=== PATIENT | female | born 1980 | race Caucasian/White ===

== ENCOUNTER → 2021-12-31 | Outpatient (CLI) | payer BC ==
[2021-12-31 15:25] LABS: C Reactive Protein <0.30 mg/dL (0.00-0.80); Estradiol 25.4 pg/mL; Testosterone 5.63 ng/mL (9.01-47.94)
== END | disposition home or self-care (01) ==
LOC: LABWHC1 10:44
PROVIDERS: ATTEND Family Medicine
DX: G62.9 Polyneuropathy, unspecified (principal); E89.41 Symptomatic postprocedural ovarian failure
CPT/HCPCS: 36415; 82607; 82626; 82670; 83090; 84403; 86038; 86140

== ENCOUNTER → 2022-01-20 | Outpatient (CLI) | payer BC ==
--- NOTE | 2022-01-20 17:16 | MR ---
EXAMINATION TYPE: MR lumbar spine wo con DATE OF EXAM: 01/20/2022 COMPARISON: MRI lumbar spine 01/19/2015. HISTORY: Radiculopathy, lumbosacral region TECHNIQUE: Multiplanar, multisequence images of the lumbar spine were acquired without IV contrast. FINDINGS: Lumbar segments are intact. No paraspinal masses are identified. Conus medullaris has a normal appe arance. Disc desiccation is present at L5-S1. L1-L2: No herniation, protrusion or disc bulging. No canal stenosis is present. Foramina are paten t bilaterally. L2-L3: No herniation, protrusion or disc bulging. No canal stenosis is present. Foramina are paten t bilaterally. L3-L4: No herniation, protrusion or disc bulging. No canal stenosis is present. Foramina are paten t bilaterally. L4-L5: No herniation, protrusion or disc bulging. No canal stenosis is present. Foramina are patent bilaterally. L5-S1: Broad-based disc bulge without central canal stenosis. Previously seen central disc protrusion is no longer visualized. There is ligamentum flavum buckling and facet hypertrophy. Mild bilateral n eural foraminal stenosis. IMPRESSION: Degenerative disc disease at L5-S1 with broad-based disc bulge without central canal stenosis. Mild b ilateral neural foraminal stenosis. Previously seen disc herniation is no longer visualized.
== END | disposition home or self-care (01) ==
LOC: RADMRIMAIN 15:16
PROVIDERS: ATTEND Nurse Practitioner Adult Health
DX: M51.17 Intervertebral disc disorders with radiculopathy, lumbosacral region (principal); M48.061 Spinal stenosis, lumbar region without neurogenic claudication
CPT/HCPCS: 72148

== ENCOUNTER → 2022-02-11 | Outpatient (CLI) | payer BC ==
--- NOTE | 2022-02-11 17:16 | MR ---
EXAMINATION TYPE: MR sacrum/coccyx wo con DATE OF EXAM: 02/11/2022 COMPARISON: None. HISTORY: Lower back pain, RLE radiculopathy x 5 years. Standard multiplanar, multisequence MRI departmental protocol Multiplanar, multisequence images of the pelvis were acquired without contrast. Imaging focusing on b ilateral sacroiliac joints. FINDINGS: Sacroiliac joints appear symmetric and felt within normal limits. No asymmetric narrowing o r spurring is seen. Bone marrow signal intensity is maintained. No suspicious adjacent increased T2 s ignal or edema is noted. Visualized portion of sacrum is within normal limits. Sacral alar are mainta ined. No displaced acute sacral or coccygeal fracture. There is disc desiccation with mild to moderate disc space narrowing L5-S1 level. Tiny posterior disc herniation minimally effaces the anterior thecal sac. There are diverticula in the sigmoid colon of the left pelvis. Uterus is suspected surgically absent. No concerning pelvic fluid collection is seen. IMPRESSION: No suspicious findings seen to account for patient's right-sided radiculopathy type sympt oms.
== END | disposition home or self-care (01) ==
LOC: RADMRIMAIN 14:58
PROVIDERS: ATTEND Family Medicine
DX: M54.17 Radiculopathy, lumbosacral region (principal)
CPT/HCPCS: 72195

== ENCOUNTER → 2022-03-09 | Outpatient (CLI) | payer BC ==
[2022-03-09 10:33] VITALS: BP 117/73; PULSE 71; RESP 18; TEMP 98
--- NOTE | 2022-03-09 15:34 | P.PAINPG ---
PQRS Measure Charge Sheet Comment: HISTORY OF PRESENT ILLNESS: 41 yr old female as a referral from [facility] presents today w severe and chronic LBP x 5 yrs secondary to disc bulges and facet arthropathy without myelopathy for evaluation. Pt states pain level is at 8 /10 in intensity, constant, localized in the center lower lumbar spine, sharp/ stabbing in character w shooting pain towards the BLEs, R>L. Pain is provoked by standing/laying flat on her back for periods of 45 min or more . Pain is alleviated by heat, medications (Neurontin, Tyl, Motrin), topicals, laying on her side, repositioning and rest. States she can not go to a chiropractor due to TMJ. PT could not commence PT treatments as her insurance would not cover the costs, which out of pocket would cost her $1,000 per month which is unaffordable for the patient. PMH: OA, MDD, (Rybelsus for weight loss, pt is not diabetic) PSH: Hysterectomy (2010), Laprascopy (1991, 1993) SH: Negative x 3 FH: Non contributory All: NKDA Meds: See list REVIEW OF ORGAN SYSTEMS: CONSTITUTIONAL: No fevers or chills. No recent weight loss. NEUROLOGICAL: + numbness and tingling along the distal extremities. No seizure disorders or headaches. MUSCULOSKELETAL: + pain PSYCHIATRIC: Denies current depression or suicidal thoughts. Physical Examinations : Constitutional : Cooperative , not in acute distress . Neurologic : Cranial nerve II to XII intact. No focal neurological deficits. Psychiatric : alert & oriented x 3. Matching mood & appropriate affect. Judgment & insight intact. Musculoskeletal : Cervical Spine Motor strength in the deltoid and biceps: Normal right side. Normal Left side Motor strength biceps and the wrist extensors: Normal right side . Normal left side Motor strength in the triceps muscle: Normal right side. Normal left side Deep tendon reflexes: Normal at the biceps. Normal at Brachioradialis. Normal at triceps Vertebral body tenderness to deep palpation over Cervical facet loading test: positive bilaterally Spurling test: positive bilaterally Neck distraction test: positive bilaterally Mary sign: positive bilaterally Lumbar spine Motor strength lower extremities ,thigh and legs 5/5 Right side , 5/5 Left side Deep tendon reflexes : Normal Knee Jerk. Normal Ankle Jerk Vertebral body tenderness over L5 Lumbar facet Loading Test: positive Right / positive Left Range of motion of the lumbar spine Flexion 30 degrees, extension 10 degrees Straight Leg Raise test: Left/ Right positive at degree Kanika test: positive right / positive left. Severe tenderness over the Sacroiliac joint on the Right / Left sides Gaenslen test: positive bilaterally Seated flexion test: positive bilaterally. Sacral spine : Severe tenderness over the Sacroiliac joint: right side / left side Range of motion: Flexion of the lumbar spine <60 degrees Range of motion: Extension of the lumbar spine <20 degrees Gaenslen's Test positive Mehran's Test positive Kanika test: positive right side / left side Thigh Thrust Test Sacral Thrust Test Imaging: MRI without contrast of the lumbar spine from 01/20/22 reviewed Assessment/ Plan : Lumbar disc bulge, Lumbar facet arthropathy Recommendation of DIPAK L5-S1. May need a series of injections, up to 3 within a 6 mo period, for optimal pain relief. Risks, benefits of procedure discussed and patient verbalized understanding. Admits to aspirin or anti- coagulant use or medications for diabetes. Protocol for discontinuation/ continuation of medications yessi procedure discussed. All questions answered. I have spent greater than 30 minutes on patient care today. Dr Barrios was available by phone for the evaluation of this patient. The time was used to review the medical records including relevant urine studies and Prescription history (MAPs), review of the available imaging, evaluation and examination of the patient, coordination of care with the medical staff and if applicable referring physicians, as well as creation of the medical record - Pain Location Lower Back Non-Pharmacological Interventions: Heat, Inactivity Pharmacological Interventions: PRN Medication, Scheduled Medication, Topical Medication Controlled Substance Measures - Controlled Substance Measures Is patient prescribed a controlled substance at discharge?: No
== END ==
LOC: PNWHC3 09:42
PROVIDERS: ATTEND Specialist
DX: M51.16 Intervertebral disc disorders with radiculopathy, lumbar region (principal); Z79.01 Long term (current) use of anticoagulants; E11.9 Type 2 diabetes mellitus without complications; Z79.4 Long term (current) use of insulin
CPT/HCPCS: 99211

== ENCOUNTER 2022-04-09 11:06 | Day surgery (SDC) | payer BC ==
[2022-04-07 14:57] VITALS: BMI 25.8
[2022-04-09 11:36] VITALS: RESP 16; TEMP 97.6
[2022-04-09] MEDS ORDERED: LACTATED RINGERS 1,000 ML IV ONE ×2 (11:36→12:15)
[2022-04-09] MEDS ORDERED: TRIAMCINOLONE ACETONIDE 40 MG/ML 1 ML VIAL ONE (12:04)
[2022-04-09] MEDS ORDERED: IOPAMIDOL M200 10 ML VIAL ONE (12:04)
[2022-04-09] MEDS ORDERED: fentaNYL (PF) 50 MCG/ML 2 ML AMP ONE (12:04)
[2022-04-09] MEDS ORDERED: MIDAZOLAM 2 MG/2 ML VIAL ONE (12:04)
--- NOTE | 2022-04-09 12:14 | P.PCN ---
Date of Procedure: 04/09/22 Description of Procedure: PREOPERATIVE DIAGNOSIS: 1-lumbar radiculopathy 2-Lumbar spondylosis with Facet arthropathy without myelopathy POSTOPERATIVE DIAGNOSIS: Lumbar radiculopathy 2-Lumbar spondylosis with Facet arthropathy without myelopathy PROCEDURE 1. Lumbar epidural steroid injection under fluoroscopic guidance at the L5-S1 level. 2. Lumbar epidurogram. ANESTHESIA: Local with 1% lidocaine 3 ml and IV sedation with Versed 2 mg ,and fentanyl 100 g EBL: Minimal PROCEDURE INDICATION: The patient with low back pain and radiculitis symptoms unresponsive to conservative treatment. Fluoroscopy was used to optimize visualization of the needle placement and to maximize safety. PROCEDURE DESCRIPTION / TECHNIQUE: The patient was seen and identified in the preoperative area. Risks, benefits, complications including but not limited to infections ,bleeding ,allergic reaction to the medications ,nerve damage and not complete pain releife , and alternatives were discussed with the patient. The patient agreed to proceed with the procedure and signed the consent. IV was started, and vital signs were stable. Patient was taken to the OR and time out was completed. The patient was placed in the prone position on procedure table and a pillow was placed under the abdomen to reduce lumbar lordosis. The lumbosacral area was prepped and draped in the usual sterile fashion.ere closely monitored during the procedure. Conscious sedation was used during the procedure to decrease patients anxiety. Vital signs was monitered during the entire procedure. Using anterior-posterior fluoroscopy, the L5-S1 interlaminar space was identified and the skin over this site was marked and then infiltrated with 1% lidocaine subcutaneously. Subsequently, a 20-gauge Tuohy epidural needle was inserted and advanced toward the epidural space using the ``Loss of resistance technique and guided by AP and lateral fluoroscopy. The correct needle position in the epidural space was verified with the injection of 2 mL of the water soluble contrast dye Omnipaque 180 contrast and observing an excellent epidurogram with the epidural spread of the dye, after negative aspiration for blood and CSF and in the absence of paresthesias. Again after negative aspiration, a 6 ml mixture containing 40 mg Kenalog and 4 ml of preservative free Normal Saline was injected and a washout of epidurogram was seen. Needle was withdrawn intact, skin was cleansed, and bandages were applied. COMPLICATIONS: None DISPOSITION / PLANS: The patient was placed in a supine position and transferred to the recovery area in a stable condition for observation. There was no evidence of lower extremity motor or sensory deficit after the procedure. Patient was discharged from the recovery room after meeting discharge criteria. Home discharge instructions were given to the patient by the staff. The patient was reexamined prior to discharge. The patient will schedule a follow up in the clinic in 2-4 weeks.
[2022-04-09] MEDS ORDERED: LACTATED RINGERS 1,000 ML IV SCH (12:15)
--- NOTE | 2022-04-09 12:24 | FL ---
Fluoroscopy INDICATION: Pain FINDINGS: Fluoroscopy time: 3 seconds. Images obtained: 1. IMPRESSIONS: 1. Documentation of fluoroscopy.
[2022-04-09 12:30] VITALS: BP 106/69; PULSE 51
== END 2022-04-09 12:45 | disposition home or self-care (01) ==
LOC: ORPAIN 11:06
PROVIDERS: ATTEND Anesthesiology
DX: M47.26 Other spondylosis with radiculopathy, lumbar region (principal)
CPT/HCPCS: 62323; J2250; J3301; J3010; Q9966

== ENCOUNTER → 2022-04-23 | Outpatient (CLI) | payer BC ==
[2022-04-23 09:02] VITALS: BP 107/73; PULSE 67; RESP 18; TEMP 98.1
--- NOTE | 2022-04-23 14:42 | P.PAINPG ---
PQRS Measure Charge Sheet Comment: A 42 yr old female with a history of severe and chronic low back pain secondary to lumbar DDD and spondylosis with facet arthropathy without myelopathy presents today for evalaution s/p DIPAK L5-S1 Pt states she experienced 0 % pain relief s/p procedure. Pain level is provoked at 8 /10 in intensity, constant, localized in the lumbar spine, throbbing/ sharp in character w shooting towards the BL hips, L>R. Pain is provoked by bending, lifting. Pain is alleviated with heat, home exercise daily, meds (Neurontin, Motrin OTC), topicals, sitting and rest. Interventional pain procedures completed include DIPAK L5-S1 Patient is currently on Neurontin, Motrin OTC Patient denies any side effects of the medication(s), denies excessive drowsiness or sleepiness, denies suicidal ideation and reports that the current pain medication is helping to control the pain and improve activities of daily living. Patient denies any motor or sensory deficits. Patient denies any fever or night sweats, denies any change in the bowel movements or urination. Physical Examination: -Constitutional: Cooperative. Not in acute distress . - Neurologic: Cranial nerve II to XII intact. No focal neurological deficits. - Psychatric: Alert & oriented x 3. Matching mood & appropriate affect. Judgment and insight intact. - Musculoskeletal: Cervical spine: Muscle bulk/ tone/ strength in the bilateral upper extremities normal Vertebral body tenderness to palpation over Spurling test positive Distraction test positive Facet loading test positive Thoracic spine Muscle bulk / tone/ strength in the bilateral paraspinal muscles normal Vertebral body tender to palpation over Facet loading test positive Lumbar spine: Motor bulk/ tone/ strength lower extremities , thigh and legs : 5/5 Deep tendon reflexes : Normal Knee Jerk. Normal Ankle Jerk . Vertebral body tenderness to palpation over Lumbar Facet Loading Test positive TTP over BL L4-L5, L5-S1 facets, L>R Straight Leg Raise: positive at 30 degrees right side/ left side Gaenslen's Test positive Sacral spine : Severe tenderness over the Sacroiliac joint: right side / left side Range of motion: Flexion of the lumbar spine <60 degrees Range of motion: Extension of the lumbar spine <20 degrees Gaenslen's Test positive Kanika test: positive right side / left side Thigh Thrust Test Sacral Thrust Test Assessment and plan: Chronic LBP secondary to lumbar DDD, spondylosis with facet arthropathy without myelopathy Recommendation of BL facet block of the medial branches L4-L5, L5-S1 #1. May need a series of injections, up until RFA, for optimal pain relief. Risks, benefits of procedure discussed and pt verbalized understanding. Admits to anticoagulant use or medical history of diabetes. Protocol for discontinuation/ continuation of medications yessi procedure discussed. All patient questions answered I have spent less than 30 minutes on patient care today. Dr Barrios was available by phone for the evaluation of this patient. The time was used to review the medical records including relevant urine studies and Prescription history (MAPs), review of the available imaging, evaluation and examination of the patient, coordination of care with the medical staff and if applicable referring physicians, as well as creation of the medical record - Pain Location Lower Back Non-Pharmacological Interventions: Heat, Home Exercise, Ice, Inactivity, Position/Reposition, Sitting, Stretching Pharmacological Interventions: Epidural, PRN Medication, Scheduled Medication, Topical Medication PQRS Narrative: Hx Alcohol Use (MH) No Home Medications: Ambulatory Orders FLUoxetine HCL 40 mg PO DAILY 04/07/22 Gabapentin [Neurontin] 100 mg PO BID 04/07/22 Semaglutide [Rybelsus] 6 mg PO DAILY 04/07/22 estradioL [Estrace] 1 mg PO DAILY 04/07/22 Ibuprofen [Motrin Ib] 200 mg PO Q8H 04/23/22 Controlled Substance Measures - Controlled Substance Measures Is patient prescribed a controlled substance at discharge?: No
== END ==
LOC: PNWHC3 08:38
PROVIDERS: ATTEND Specialist
DX: M47.816 Spondylosis without myelopathy or radiculopathy, lumbar region (principal); M51.36 Other intervertebral disc degeneration, lumbar region; Z79.84 Long term (current) use of oral hypoglycemic drugs
CPT/HCPCS: 99211

== ENCOUNTER → 2022-06-25 | Outpatient (CLI) | payer BC ==
[2022-06-25 10:40] VITALS: BP 112/60; PULSE 66; RESP 18; TEMP 97.9
--- NOTE | 2022-06-25 15:51 | P.PAINPG ---
Objective - Vital Signs Vital signs: Intake & Output 06/24/22 06/25/22 06/25/22 18:59 06:59 18:59 Weight 75.296 kg PQRS Measure Charge Sheet Comment: A 42 yr old female with a history of severe and chronic LBP secondary to lumbar DDD and spondylosis with facet arthropathy without myelopathy presents today for evaluation s/p BL facet block of the medial branches L4-L5, L5-S1 #1. Pt states she experreinced 90 % pain relief x 8 hrs s/p procedure. Pain level is provoked at 6 /10 in intensity, constant, localized in the lumbar spine, achy in character w shooting up and down the spine. Pain is provoked by lifting, pushing, pulling, standing/ walking for periods of 15 min or more. Pain is alleviated with heat, ice, meds, topicals, repositioning and rest. Interventional pain procedures completed include BL MBB L3-L5 x1 Patient is currently on Ibu Patient denies any side effects of the medication(s), denies excessive drowsiness or sleepiness, denies suicidal ideation and reports that the current pain medication is helping to control the pain and improve activities of daily living. Patient denies any motor or sensory deficits. Patient denies any fever or night sweats, denies any change in the bowel movements or urination. Physical Examination: -Constitutional: Cooperative. Not in acute distress . - Neurologic: Cranial nerve II to XII intact. No focal neurological deficits. - Psychatric: Alert & oriented x 3. Matching mood & appropriate affect. J udgment and insight intact. - Musculoskeletal: Cervical spine: Muscle bulk/ tone/ strength in the bilateral upper extremities normal Vertebral body tenderness to palpation over Spurling test positive Distraction test positive Facet loading test positive TTP Thoracic spine Muscle bulk / tone/ strength in the bilateral paraspinal muscles normal Vertebral body tender to palpation over Facet loading test positive TTP Lumbar spine: Motor bulk/ tone/ strength lower extremities , thigh and legs : 5/5 Deep tendon reflexes : Normal Knee Jerk. Normal Ankle Jerk . Vertebral body tenderness to palpation over Lumbar Facet Loading Test positive TTP over BL L4-L5, L5-S1 facets Straight Leg Raise: positive at 30 degrees right side/ left side Gaenslen's Test positive Sacral spine : Severe tenderness over the Sacroiliac joint: right side / left side Range of motion: Flexion of the lumbar spine <60 degrees Range of motion: Extension of the lumbar spine <20 degrees Gaenslen's Test positive right side / left side Kanika test: positive right side / left side Thigh Thrust Test positive right side / left side Sacral Thrust Test positive right side / left side Assessment and plan: Chronic LBP secondary to lumbar DDD, spondylosis with facet arthropathy without myelopathy Recommendation of BL facet block of the medial branches L4-L5, L5-S1 #2. May need a series of injections, up until RFA, for optimal pain relief. Risks, benefits of procedure discussed and pt verbalized understanding. Admits to anticoagulant use or medical history of diabetes. Protocol for discontinuation/ continuation of medications yessi procedure discussed. All questions answered. I have spent less than 30 minutes on patient care today. Dr Barrios was available by phone for the evaluation of this patient. The time was used to re view the medical records including relevant urine studies and Prescription history (MAPs), review of the available imaging, evaluation and examination of the patient, coordination of care with the medical staff and if applicable referring physicians, as well as creation of the medical record PQRS Narrative: Hx Alcohol Use (MH) No Home Medications: Ambulatory Orders FLUoxetine HCL 40 mg PO DAILY 04/07/22 Semaglutide [Rybelsus] 6 mg PO DAILY 04/07/22 estradioL [Estrace] 1 mg PO DAILY 04/07/22 Ibuprofen [Motrin Ib] 200 mg PO Q8H PRN 04/23/22 Lidocaine 5% Patch [Lidoderm] 1 each TP QAM 30 Days #30 patch 05/14/22 buPROPion XL [Wellbutrin XL] 150 mg PO HS 06/02/22 Controlled Substance Measures - Controlled Substance Measures Is patient prescribed a controlled substance at discharge?: No
== END ==
LOC: PNWHC3 09:51
PROVIDERS: ATTEND Anesthesiology
DX: M47.816 Spondylosis without myelopathy or radiculopathy, lumbar region (principal); M51.36 Other intervertebral disc degeneration, lumbar region; G89.29 Other chronic pain
CPT/HCPCS: 99211

== ENCOUNTER 2022-07-31 08:39 | Day surgery (SDC) | payer BC ==
[2022-07-28 10:11] VITALS: BMI 24.2
[~2022-07-31 08:39] MED LIST: LACTATED RINGERS 1,000 ML IV SCH; LIDOCAINE 1% (10MG/ML) FOR IV START INTRADERMA PRN
[2022-07-31 08:56] VITALS: TEMP 97
[2022-07-31] MEDS ORDERED: methylPREDNISolone ACETATE 40 MG/ML 1 ML VIAL ONE (09:10)
[2022-07-31] MEDS ORDERED: ROPIVACAINE 5 MG/ML 20 ML AMPULE ONE (09:10)
[2022-07-31] MEDS ORDERED: fentaNYL (PF) 50 MCG/ML 2 ML AMP ONE (09:10)
[2022-07-31] MEDS ORDERED: MIDAZOLAM 2 MG/2 ML VIAL ONE (09:10)
--- NOTE | 2022-07-31 09:25 | P.PCN ---
Date of Procedure: 07/31/22 Procedure(s) Performed: PREOPERATIVE DIAGNOSIS : 1- Lumbar spondylosis with Facet Arthropathy without myelopathy . 2- Lumber degenerative disc disease POSTOPERATIVE DIAGNOSIS: 1- Lumbar spondylosis with Facet Arthropathy without myelopathy . 2- Lumber degenerative disc disease PROCEDURE: Diagnostic bilateral L3 , L4 , and L5 medial branch block under fluoroscopy guidance(fluoroscopy images available in the radiology Department ) ( To target the facet joint between I Bilateral L4-5 , and L5-S1 )# 2nd ANESTHESIA:, Monitored anesthesia care as per anesthesia department. EBL: Minimal COMPLICATION: None PROCEDURE INDICATION: Chronic low back pain secondary to Facet arthropathy unresponsive to conservative treatment. PROCEDURE DESCRIPTION: the patient was seen and identified in the preop holding area , risks and benefits and possible complications of the procedure and alternative were discussed with the patient, and the patient agreed to proceed with the procedure and signed the consent and vital signs monitored during the procedure and fluoroscopy was used to maximize the benefit and accuracy of the needle placement, and sedation was given to decrease patient anxiety, patient was taken to the procedure room and placed in prone position vital signs monitored in the back prepped with chlorhexidine X3 then under strict sterile technique using a right oblique fluoroscopy ,the junction of the transverse process and the superior articulating process of the right L3 , L4 , and L5 vertebra which corresponding to the fluoroscopy image of the eye of the Minh dog on the block side for the medial branches and subsequently , after local infiltration of skin and subcu tissuies with Ropivacaine 0.5 % , one mL at each level ,then 22-gauge Quincke-type needles , 3 needle was used , each one of them placed at the junction of the base of the transverse process and the superior articular process at the appropriate level, and the needle was advanced until the periosteum contacted, needle placement confirmed with AP oblique and lateral view and after appropriate needle placement confirmed, and after negative aspiration for heme and CSF and there was no paresthesia 1-1/2 mL of Ropivacaine 0.5% mixed with 20 mg Depo-Medrol , then half mL injected at each level after negative aspiration the needle subsequently removed and the same procedure repeated for the left side at left side at L3 , L4 and L5 levels. At the end of the procedure and the needles removed and a bandage applied after the skin was cleaned the cleaning solution patient taken to recovery room in stable condition and monitors in the recovery room for 20-30 minutes and discharged home in stable condition after discharge criteria met and patient will follow up with the pain clinic in 2-4 weeks
[2022-07-31] MEDS ORDERED: IV FLUID CONTINUATION 600 ML IV ONE (09:28)
[2022-07-31 09:49] VITALS: BP 109/74; PULSE 58; RESP 16
--- NOTE | 2022-07-31 12:54 | FL ---
Fluoroscopy INDICATION: Pain FINDINGS: Fluoroscopy time: 20 seconds. DAP: 0.87772 mGycm^2 Images obtained: 5. IMPRESSIONS: 1. Documentation of fluoroscopy.
== END 2022-07-31 10:12 | disposition home or self-care (01) ==
LOC: ORPAIN 08:39
PROVIDERS: ATTEND Specialist
DX: M51.36 Other intervertebral disc degeneration, lumbar region (principal); M47.816 Spondylosis without myelopathy or radiculopathy, lumbar region; G89.29 Other chronic pain; Z87.891 Personal history of nicotine dependence; Z79.899 Other long term (current) drug therapy
CPT/HCPCS: 64493; 64494; J2250; J1030; J3010; J2795

== ENCOUNTER → 2022-08-20 | Outpatient (CLI) | payer BC ==
[2022-08-20 10:59] VITALS: BP 111/73; PULSE 59; RESP 18; TEMP 97.9
--- NOTE | 2022-08-20 14:13 | P.PAINPG ---
PQRS Measure Charge Sheet Comment: A 42 yr old female with a history of severe and chronic LBP secondary to lumbar DDD and spondylosis with facet arthropathy without myelopathy presents today for evaluation s/p BL MBB L4-L5, L5-S1 #2. Pt states she experienced 100 % pain relief x 4 days s/p procedure. Pain level is provoked at 6 /10 in inten sity, constant, localized in the lumbar spine,sharp in character w shooting up and down the spine. Pain is provoked by lifting, pushing, pulling, standing/ walking for periods of 15 min or more. Pain is alleviated with heat, ice, meds, topicals, repositioning and rest. Interventional pain procedures completed include LESIs, BL MBB L3-L5 x2 Patient is currently on Ibu, Lidoderm Patient denies any side effects of the medication(s), denies excessive drowsiness or sleepiness, denies suicidal ideation and reports that the current pain medication is helping to control the pain and improve activities of daily living. Patient denies any motor or sensory deficits. Patient denies any fever or night sweats, denies any change in the bowel movements or urination. Physical Examination: -Constitutional: Cooperative. Not in acute distress . - Neurologic: Cranial nerve II to XII intact. No focal neurological deficits. - Psychatric: Alert & oriented x 3. Matching mood & appropriate affect. Judgment and insight intact. - Musculoskeletal: Cervical spine: Muscle bulk/ tone/ strength in the bilateral upper extremities normal Vertebral body tenderness to palpation over Spurling test positive Distraction test positive Facet loading test positive TTP Thoracic spine Muscle bulk / tone/ strength in the bilateral paraspinal muscles normal Vertebral body tender to palpation over Facet loading test positive TTP Lumbar spine: Motor bulk/ tone/ strength lower extremities , thigh and legs : 5/5 Deep tendon reflexes : Normal Knee Jerk. Normal Ankle Jerk . Vertebral body tenderness to palpation over Lumbar Facet Loading Test positive TTP over BL L4-L5, L5-S1 Straight Leg Raise: positive at 30 degrees right side/ left side Gaenslen's Test positive Sacral spine : Severe tenderness over the Sacroiliac joint: right side / left side Range of motion: Flexion of the lumbar spine <60 degrees Range of motion: Extension of the lumbar spine <20 degrees Gaenslen's Test positive right side / left side Kanika test: positive right side / left side Thigh Thrust Test positive right side / left side Sacral Thrust Test positive right side / left side Assessment and plan: Chronic LBP secondary to lumbar DDD, spondylosis with facet arthropathy without myelopathy Recommendation of BL RFA L4-L5, L5-S1. Pt exhibited substantial pain relief w prior MBB procedures. Risks, benefits of procedure discussed and pt verbalized understanding. Admits to anticoagulant use or medical history of diabetes. Protocol for discontinuation/ continuation of medications yessi procedure discussed. All questions answered. I have spent less than 30 minutes on patient care today. Dr Barrios was available by phone for the evaluation of this patient. The time was used to review the medical records including relevant urine studies and Prescription history (MAPs), review of the available imaging, evaluation and examination of the patient, coordination of care with the medical staff and if applicable referring physicians, as well as creation of the medical record PQRS Narrative: Hx Alcohol Use (MH) No Home Medications: Ambulatory Orders FLUoxetine HCL 40 mg PO DAILY 04/07/22 Semaglutide [Rybelsus] 6 mg PO DAILY 04/07/22 estradioL [Estrace] 1 mg PO DAILY 04/07/22 Ibuprofen [Motrin Ib] 200 mg PO Q8H PRN 04/23/22 Lidocaine 5% Patch [Lidoderm] 1 each TP QAM 30 Days #30 patch 05/14/22 buPROPion XL [Wellbutrin XL] 150 mg PO HS 06/02/22 Controlled Substance Measures - Controlled Substance Measures Is patient prescribed a controlled substance at discharge?: No
== END ==
LOC: PNWHC3 09:46
PROVIDERS: ATTEND Specialist
DX: M51.36 Other intervertebral disc degeneration, lumbar region (principal); M47.816 Spondylosis without myelopathy or radiculopathy, lumbar region
CPT/HCPCS: 99211

== ENCOUNTER 2022-09-25 08:48 | Day surgery (SDC) | payer BC ==
[2022-09-23 10:18] VITALS: BMI 24.3
[2022-09-25] MEDS ORDERED: LIDOCAINE 1% (10MG/ML) FOR IV START INTRADERMA PRN (08:57)
[2022-09-25] MEDS ORDERED: LACTATED RINGERS 1,000 ML IV SCH (08:57)
[2022-09-25] MEDS ORDERED: LACTATED RINGERS 1,000 ML IV ONE ×2 (09:08→10:40)
[2022-09-25 09:09] VITALS: TEMP 97.6
[2022-09-25 09:12] LABS: Glucose,Whole Blood 90 mg/dL (70-110)
[2022-09-25] MEDS ORDERED: MIDAZOLAM 2 MG/2 ML VIAL ONE (10:07)
[2022-09-25] MEDS ORDERED: ROPIVACAINE 5 MG/ML 20 ML AMPULE ONE (10:07)
[2022-09-25] MEDS ORDERED: fentaNYL (PF) 50 MCG/ML 2 ML AMP ONE (10:07)
[2022-09-25] MEDS ORDERED: methylPREDNISolone ACETATE 40 MG/ML 1 ML VIAL ONE (10:07)
--- NOTE | 2022-09-25 10:34 | P.PCN ---
Date of Procedure: 09/25/22 Procedure(s) Performed: PREOPERATIVE DIAGNOSIS: 1-Lumbar Spondylosis with Facet Arthropathy without myelopathy. 2- Lumber degenerative disc disease. POSTOPERATIVE DIAGNOSIS: 1- Lumbar Spondylosis with Facet Arthropathy without myelopathy. 2- Lumber degenerative disc disease. PROCEDURES : Bilateral Radiofrequency thermocoagulation, L3 , L4 , and L5 medial branch, with fluoroscopic guidance (fluoroscopy images available in the radiology department) ( to denervate the facet joint at bilateral L4-5 ,and L5-S1 levels ). ANESTHESIA: Monitored anesthesia care as per anesthesia department . EBL: Minimal PROCEDURE INDICATION: The patient with low back pain secondary to lumbar facet arthropathy who had more than 50% relief of her pain with previous diagnostic lumbar medial branch block with bupivacaine. PROCEDURE DESCRIPTION / TECHNIQUE: The patient was seen and identified in the preoperative area. Risks, benefits, complications, including but not limited to risk of infection ,bleeding , allergic reactions to the medications and no complete pain releife , and alternatives were discussed with the patient, the patient agreed to proceed with the procedure and signed the consent. IV was started. Vital signs remained stable throughout the procedure. Patient was taken to the OR and time out was completed. The patient was placed in the prone position on the procedure table. The lumber area was prepped and draped in the usual sterile fashion. . Vital signs were closely monitored during the procedure .IV sedation was used during the procedure to decrease patients anxiety. Using AP and then oblique fluoroscopy, the ``eye of the Minh dog co rresponding to the connection between the superior and transverse articular processes of right L3, L4, and L5 were identified, marked, and localized with 1% lidocaine. Subsequently, a 18 -tq radiofrequency cannula with a 10- mm active tip was advanced guided by fluoroscopy to each of the``eyes of the Minh dog at right L3, L4, and L5. Each site then underwent sensory testing at 50 Hz and 0 to 1 volt and motor testing at 2.5 Hz and 0 to 3 volt with local stimulation, but no radicular symptoms down the legs. Thereafter each sites underwent radiofrequency thermocoagulation at 80 degrees celsius for 90 seconds after injecting 0.5 ml of PF Ropivacaine 1ml, then after the thermocoagulation done , 1 ml of the block solution containing Depo-Medrol 20 mg and 3 ml of Ropivacaine 0.5% was injected at the right L3 , L4 , and L5 , levels after negative aspiration of CSF and blood and with no paresthesias. Cannulas were retracted while injecting lidocaine 1% until the needle is out. The same procedure was repeated at the level of Left L3, L4, and L5 levels. At the end of the procedure, the skin was cleansed and bandages were applied. COMPLICATIONS: No acute complications. DISPOSITION / PLANS: The patient was placed in a supine position and transferred to the recovery area in a stable condition for observation and was discharged from the recovery room after meeting discharge criteria. Home discharge instructions given to the patient by the staff. The patient was reexamined prior to discharge. The patient will schedule a follow up in the clinic in 2-4 weeks.
[2022-09-25 10:55] VITALS: RESP 16
[2022-09-25 11:08] VITALS: BP 97/60; PULSE 58
--- NOTE | 2022-09-25 15:09 | FL ---
Fluoroscopy INDICATION: Pain FINDINGS: Fluoroscopy time: 13 seconds. Total dose area product (DAP) in uGy*m?, mGy*cm? (or similar): 0.97350 Images obtained: 11. IMPRESSIONS: 1. Documentation of fluoroscopy.
== END 2022-09-25 11:10 | disposition home or self-care (01) ==
LOC: ORPAIN 08:48
PROVIDERS: ATTEND Specialist
DX: M51.36 Other intervertebral disc degeneration, lumbar region (principal); M47.816 Spondylosis without myelopathy or radiculopathy, lumbar region
CPT/HCPCS: 64635; 64636 ×2; J2250; J1030; J3010; J2795

== ENCOUNTER → 2022-11-16 | Outpatient (CLI) | payer BC ==
[2022-11-16 09:58] VITALS: BP 100/64; PULSE 67; RESP 15; TEMP 97.7
--- NOTE | 2022-11-16 14:33 | P.PAINPG ---
PQRS Measure Charge Sheet Comment: A 42 yr old female with a history of severe and chronic LBP secondary to lumbar DDD and spondylosis with facet arthropathy without myelopathy presents today for evaluation s/p BL RFA L4-L5, L5-S1. Pt states she experienced 80 % pain relief s/p procedure. Pain level is provoked at 8 /10 in intensity, constan t, localized in the lumbar spine,sharp in character w shooting up and down the spine. Pain is provoked by lifting, pushing, pulling, standing/ walking for periods of 15 min or more. Pain is alleviated with heat, ice, meds, topicals, repositioning and rest. Pt states her insurance would not cover PT so she follows physician guided exercises at home approx 4-5 times weekly x 6 months. Oswestry axial pain score o f 15. Interventional pain procedures completed include Favian, BL RFA L3-L5 (Sep 2022) Patient is currently on Ibu, Lidoderm Patient denies any side effects of the medication(s), denies excessive drowsiness or sleepiness, denies suicidal ideation and reports that the current pain medication is helping to control the pain and improve activities of daily living. Patient denies any motor or sensory deficits. Patient denies any fever or night sweats, denies any change in the bowel movements or urination. Physical Examination: -Constitutional: Cooperative. Not in acute distress . - Neurologic: Cranial nerve II to XII intact. No focal neurological deficits. - Psychatric: Alert & oriented x 3. Matching mood & appropriate affect. Judgment and insight intact. - Musculoskeletal: Cervical spine: Muscle bulk/ tone/ strength in the bilateral upper extremities normal Vertebral body tenderness to palpation over Spurling test positive Distraction test positive Facet loading test positive TTP Thoracic spine Muscle bulk / tone/ strength in the bilateral paraspinal muscles normal Vertebral body tender to palpation over Facet loading test positive TTP Lumbar spine: Motor bulk/ tone/ strength lower extremities , thigh and legs : 5/5 Deep tendon reflexes : Normal Knee Jerk. Normal Ankle Jerk . Vertebral body tenderness to palpation over Lumbar Facet Loading Test Taut bands w twitch response over BL L2-S1 Straight Leg Raise: positive at 30 degrees right side/ left side Gaenslen's Test positive Sacral spine : Severe tenderness over the Sacroiliac joint: right side / left side Range of motion: Flexion of the lumbar spine <60 degrees Range of motion: Extension of the lumbar spine <20 degrees Gaenslen's Test positive right side / left side Kanika test: positive right side / left side Thigh Thrust Test positive right side / left side Sacral Thrust Test positive right side / left side Assessment and plan: Chronic LBP secondary to lumbar DDD, spondylosis with facet arthropathy without myelopathy Recommendation of BL TPIs L2-S1. May need a series of injections for optimal pain relief. Risks, benefits of procedure discussed and pt verbalized understanding. Protocol for discontinuation/ continuation of medications yesis procedure discussed. All questions answered. I have spent less than 30 minutes on patient care today. Dr Barrios was available by phone for the evaluation of this patient. The time was used to review the medical records including relevant urine studies and Prescription history (MAPs), review of the available imaging, evaluation and examination of the patient, coordination of care with the medical staff and if applicable referring physicians, as well as creation of the medical record PQRS Narrative: Hx Alcohol Use (MH) No Home Medications: Ambulatory Orders FLUoxetine HCL 40 mg PO DAILY 04/07/22 Semaglutide [Rybelsus] 6 mg PO DAILY 04/07/22 estradioL [Estrace] 1 mg PO DAILY 04/07/22 buPROPion XL [Wellbutrin XL] 150 mg PO HS 06/02/22 Lidocaine 5% Patch [Lidoderm] 1 each TP QAM PRN 09/23/22 Controlled Substance Measures - Controlled Substance Measures Is patient prescribed a controlled substance at discharge?: No
== END ==
LOC: PNWHC3 09:30
PROVIDERS: ATTEND Specialist
DX: M51.37 Other intervertebral disc degeneration, lumbosacral region (principal); M47.817 Spondylosis without myelopathy or radiculopathy, lumbosacral region; G89.29 Other chronic pain
CPT/HCPCS: 99211

== ENCOUNTER → 2022-12-03 | Day surgery (SDC) | payer BC ==
[2022-11-27 14:50] VITALS: BMI 24.3
[~2022-12-03] MED LIST changes: -LIDOCAINE 1% (10MG/ML) FOR IV START INTRADERMA PRN; +ROPIVACAINE 5MG/ML 20ML VIAL ONE; +TRIAMCINOLONE ACETONIDE 40 MG/ML 1 ML VIAL ONE
[2022-12-03 10:04] VITALS: TEMP 97.5
--- NOTE | 2022-12-03 10:52 | P.PCN ---
Date of Procedure: 12/03/22 Pathology: none sent Condition: stable Disposition: PACU Description of Procedure: Diagnosis: Myofascial pain Anesthesia:none Procedure trigger point injection in the lumbar paravertebral musculature Description of procedure: The patient was seen in preop holding area, consent was obtained, and the target points were marked at the skin level in the lumbar paravertebral area. The patient was brought into the procedure room and placed in the sitting position. Skin was prepped with ChloraPrep. I used 25-gauge needle 1/2 inch in length to go through the skin and into the musculature and the paravertebral lumbar area and deposited 1 mL of a solution made up of 5 MLS of ropivacaine 0.5% +40 mg of Kenalog. 1 mL of the solution was injected in each trigger point with a total of 5 points injected. Patient tolerated procedure well. The patient may benefit from a course of physical therapy due to her description of stiffness in her back. I will give her a referral for that.
[2022-12-03 11:14] VITALS: BP 101/67; PULSE 51; RESP 14
== END ==
LOC: ORPAIN 09:26
PROVIDERS: ATTEND Anesthesiology
DX: M79.18 Myalgia, other site (principal)
CPT/HCPCS: 20553; J3301; J2795

== ENCOUNTER → 2023-01-19 | Outpatient (CLI) | payer BC ==
--- NOTE | 2023-01-19 14:16 | MM ---
Reason for Exam: Clinical finding. Indicated Problems: Pain. Risk Values: Lisa 5 year model risk: 0.4%. NCI Lifetime model risk: 6.6%. Tissue Density: The breast tissue is heterogeneously dense. This may lower the sensitivity of mammography. Findings: Analyzed By CAD. No suspicious mass within either breast. Benign calcification within the right breast. Chronic nodularity within the right breast. No suspicious grouped calcifications within either breast. No architectural distortion. Overall Assessment: Incomplete: need additional imaging evaluation, BI-RAD 0 Management: Diagnostic Breast Ultrasound of the right breast. A clinical breast exam by your physician is recommended on an annual basis and results should be correlated with mammographic findings. This exam should not preclude additional follow-up of suspicious palpable abnormalities. Results were given to the patient verbally at the time of exam. Note on Lisa scores and lifetime risk: 1. A Lisa score greater than 3% is considered moderate risk. If this is the case, consider specialist referral to assess eligibility for a risk reducing agent. If overall lifetime risk for the development of breast cancer is 20% or higher, the patient may qualify for future screening with alternating mammogram and breast MRI. Electronically signed and approved by: Trey Yin D.O.
--- NOTE | 2023-01-19 14:56 | USB ---
Reason for Exam: Clinical finding. Patient History: Menarche at age 10. First Full-Term at age 18. Hysterectomy at age 30. Risk Values: Lisa 5 year model risk: 0.4%. NCI Lifetime model risk: 6.6%. Technique: Method: Targeted. Findings: The lower section of the breast of the right breast and the retroareolar of the right breast were scanned. Targeted ultrasound the right breast at site of pain from 3-9 o'clock was performed. Additional evaluation of the nipple was performed. There is a benign thin wall cyst within the right breast 8:00 4 cm the nipple measuring 6 x 3 x 6 mm. No internal color flow. Overall Assessment: Benign, BI-RAD 2 Management: Screening Mammogram of both breasts in 1 year. Clinical management for patient's right breast pain. A clinical breast exam by your physician is recommended on an annual basis and results should be correlated with mammographic findings. This exam should not preclude additional follow-up of suspicious palpable abnormalities. Results were given to the patient verbally at the time of exam. Electronically signed and approved by: Trey Yin D.O.
== END | disposition home or self-care (01) ==
LOC: RADMAMWWP 13:53
PROVIDERS: ATTEND Family Medicine
DX: N60.01 Solitary cyst of right breast (principal)
CPT/HCPCS: 77062; 77066

== ENCOUNTER → 2023-03-09 | Outpatient (CLI) | payer BC ==
--- NOTE | 2023-03-10 09:43 | CT ---
EXAMINATION TYPE: CT abdomen pelvis wo con DATE OF EXAM: 03/09/2023 COMPARISON: None HISTORY: umbilical pain CT DLP: 336.2 mGycm Automated exposure control for dose reduction was used. TECHNIQUE: Helical acquisition of images was performed from the lung bases through the pelvis. FINDINGS: LUNG BASES: Low attenuation near the falciform ligament likely related to localized fatty infiltratio n. LIVER/GB: No significant abnormality is appreciated. PANCREAS: No significant abnormality is seen. SPLEEN: No significant abnormality is seen. ADRENALS: No significant abnormality is seen. KIDNEYS: There is a 2 mm lower pole nonobstructing renal calculus. URINARY BLADDER: No significant abnormality is seen. ADENOPATHY: None visualized. OSSEOUS STRUCTURES: Severe degenerative disc disease L5-S1 with vacuum disc and bilateral foraminal encroachment. BOWEL: No significant abnormality is seen. Small hiatal hernia. Diverticulosis of the colon OTHER: Calcification within the uterus likely related to fibroid. No significant abnormality identifi ed in the periumbilical region. IMPRESSION: 1. NO ACUTE PROCESS. 2. PROBABLE CALCIFIED UTERINE FIBROID CONSIDER FOLLOW-UP ULTRASOUND CLINICALLY WARRANTED. 3. NONOBSTRUCTING 2 MM LOWER POLE RIGHT RENAL CALCULUS. 4. DIVERTICULOSIS WITH NO CT EVIDENCE OF DIVERTICULITIS..
== END | disposition home or self-care (01) ==
LOC: RADCTMAIN 17:02
PROVIDERS: ATTEND Family Medicine
DX: K57.30 Diverticulosis of large intestine without perforation or abscess without bleeding (principal); N20.0 Calculus of kidney
CPT/HCPCS: 74176

== ENCOUNTER → 2023-03-26 | Outpatient (CLI) | payer BC ==
--- NOTE | 2023-03-26 14:12 | US ---
EXAMINATION TYPE: US transvaginal DATE OF EXAM: 03/26/2023 COMPARISON: CT CLINICAL INDICATION: Female, 42 years old with history of R19.00 INTRA-ABD AND PELVIC SWELLING, MASS AND LUM; Abnormal CT/ Pt states complete hysterectomy with bladder sling 12 years ago TECHNIQUE: Transvaginal (TV). Transvaginal sonographic images of the pelvis were acquired. Date of LMP: 12 yrs ago 1. Uterus: Surgically absent 2. Endometrium: Surgically absent 3. Right Ovary: Surgically absent 4. Left Ovary: Surgically absent 5. Bilateral Adnexa: Surgically absent 6. Posterior cul-de-sac: wnl In area of vag cuff there is an echogenic area as visualized on CT= 1.0 x 0.8 x 0.9 cm ?etiology IMPRESSION: Postsurgical changes with surgically absent uterus. Echogenic focus near the vaginal cuff felt to rep resent calcifications seen on prior CT.
== END | disposition home or self-care (01) ==
LOC: RADUSWWP 13:30
PROVIDERS: ATTEND Family Medicine
DX: R19.00 Intra-abdominal and pelvic swelling, mass and lump, unspecified site (principal); Z90.710 Acquired absence of both cervix and uterus
CPT/HCPCS: 76830

== ENCOUNTER → 2023-05-13 | Outpatient (CLI) | payer BC ==
[2023-05-13 10:41] VITALS: BP 108/73; PULSE 63; RESP 16
--- NOTE | 2023-05-13 14:23 | P.PAINPG ---
PQRS Measure Charge Sheet Comment: A 43 yr old female with a history of severe and chronic LBP secondary to lumbar DDD and spondylosis with facet arthropathy without myelopathy presents today for evaluation s/p BL TPIs L2-S1 #1. Pt states she experienced 80 % pain relief x 4 mo s/p procedure. Pain level is provoked at 7 /10 in intensity, con stant, localized in the lumbar spine, predominantly axial, sharp in character w occasional shooting to the BL hips and back of thighs. Pain is provoked by lifting, pushing, pulling, standing/ walking for periods of 15 min or more. Pain is alleviated with heat, ice, meds, topicals, repositioning and rest. Pt states her insurance would not cover PT so she follows physician guided exercises at home approx 4-5 times weekly x 6 months. Oswestry axial pain score o f 17. Interventional pain procedures completed include LESIs, BL RFA L3-L5 (Sep 2022), BL TPIs L2-S1 x1 Patient is currently on Ibu, Lidoderm Patient denies any side effects of the medication(s), denies excessive drowsiness or sleepiness, denies suicidal ideation and reports that the current pain medication is helping to control the pain and improve activities of daily living. Patient denies any motor or sensory deficits. Patient denies any fever or night sweats, denies any change in the bowel movements or urination. Physical Examination: -Constitutional: Cooperative. Not in acute distress . - Neurologic: Cranial nerve II to XII intact. No focal neurological deficits. - Psychatric: Alert & oriented x 3. Matching mood & appropriate affect. Judgment and insight intact. - Musculoskeletal: Cervical spine: Muscle bulk/ tone/ strength in the bilateral upper extremities normal Vertebral body tenderness to palpation over Spurling test positive Distraction test positive Facet loading test positive TTP Thoracic spine Muscle bulk / tone/ strength in the bilateral paraspinal muscles normal Vertebral body tender to palpation over Facet loading test positive TTP Lumbar spine: Motor bulk/ tone/ strength lower extremities , thigh and legs : 5/5 Deep tendon reflexes : Normal Knee Jerk. Normal Ankle Jerk . Vertebral body tenderness to palpation over Lumbar Facet Loading Test Taut bands w twitch response over BL L2-S1 Straight Leg Raise: positive at 30 degrees right side/ left side Gaenslen's Test positive Sacral spine : Severe tenderness over the Sacroiliac joint: right side / left side Range of motion: Flexion of the lumbar spine <60 degrees Range of motion: Extension of the lumbar spine <20 degrees Gaenslen's Test positive right side / left side Kanika test: positive right side / left side Thigh Thrust Test positive right side / left side Sacral Thrust Test positive right side / left side Assessment and plan: Chronic LBP secondary to lumbar DDD, spondylosis with facet arthropathy without myelopathy Recommendation of BL SI injection #1. May need a series of injections for optimal pain relief. Risks, benefits of procedure discussed and pt verbalized understanding. Protocol for discontinuation/ continuation of medications yessi procedure discussed. All questions answered. I have spent less than 30 minutes on patient care today. Dr Barrios was available by phone for the evaluation of this patient. The time was used to review the medical records including relevant urine studies and Prescription history (MAPs), review of the available imaging, evaluation and examination of the patient, coordination of care with the medical staff and if applicable refer ring physicians, as well as creation of the medical record PQRS Narrative: Hx Alcohol Use (MH) No Home Medications: Ambulatory Orders FLUoxetine HCL 40 mg PO DAILY 04/07/22 Semaglutide [Rybelsus] 6 mg PO DAILY 04/07/22 estradioL [Estrace] 1 mg PO DAILY 04/07/22 Lidocaine 5% Patch [Lidoderm] 1 each TP QAM PRN 09/23/22 buPROPion XL [Wellbutrin XL] 300 mg PO DAILY 11/27/22 Controlled Substance Measures - Controlled Substance Measures Is patient prescribed a controlled substance at discharge?: Yes When asked, does pt state using other controlled substances?: No If prescribed controlled substance>3 days was MAPS reviewed?: Prescribed <3 Days
== END ==
LOC: PNWHC3 09:59
PROVIDERS: ATTEND Specialist
DX: M51.16 Intervertebral disc disorders with radiculopathy, lumbar region (principal); M47.26 Other spondylosis with radiculopathy, lumbar region; G89.29 Other chronic pain
CPT/HCPCS: 99211

== ENCOUNTER 2023-05-20 08:13 | Day surgery (SDC) | payer BC ==
[2023-05-18 10:07] VITALS: BMI 23.4
[~2023-05-20 08:13] MED LIST changes: -ROPIVACAINE 5MG/ML 20ML VIAL ONE; -TRIAMCINOLONE ACETONIDE 40 MG/ML 1 ML VIAL ONE
[2023-05-20 08:55] VITALS: TEMP 97.1
[2023-05-20] MEDS ORDERED: IOPAMIDOL M200 10 ML VIAL ONE (09:26)
[2023-05-20] MEDS ORDERED: methylPREDNISolone ACETATE 80 MG/ML 1 ML VIAL ONE (09:26)
[2023-05-20] MEDS ORDERED: ROPIVACAINE 5MG/ML 20ML VIAL ONE (09:26)
--- NOTE | 2023-05-20 09:33 | P.PCN ---
Date of Procedure: 05/20/23 Procedure(s) Performed: Procedure= bilateral sacroiliac joints steroid injection under fluoroscopy guidance (fluoroscopy image stored on file in the radiology Department ) Preoperative diagnosis= 1-sacroiliitis 2-lumbar degenerative disc disease 3- lumbar facet arthropathy Postoperative diagnosis=Same as preop Diagnosis . Complication = none Condition= stable Anesthesia= local anesthesia with ropivacaine 0.5% 4 ml only Indication for the procedure= patient complaining of low back pain , examination was positive for severe tenderness over the sacroiliac joints bilaterally and patient diagnosed with sacroiliitis, for this reason, she was good candidate for sacroiliac joint steroid injection. Description of the procedure= procedure risk and benefits discussed with the patient, including but not limited, risk of infection and bleeding, and ALLERGIC reaction to the medication and not complete pain relief and patient agreed with the preceding patient taken to the operating room, placed in prone position or standard monitors applied to the patient then after induction of anesthesia back prepped with chlorhexidine 3 times , Then under strict sterile technique, first I did the right sacroiliac joint the which was identified under fluoroscopy guidance been local infiltration of the skin and subcu interstitial with lidocaine 1% then 22-gauge Quincke Needle advanced slowly under fluoroscopy and placed in the right sacroiliac joint needle placement confirmed with AP and oblique and lateral view, then after that Isovue 200 one mL injected which confirmed the correct needle placement with the appropriate arthrogram of the sacroiliac joint, and after appropriate needle placement confirmed and after negative aspiration, or heme , then Ropivacaine 0.5% 2 mL, and 40 mg of Depo-Medrol mixed together and injected in the right sacroiliac joint after negative aspiration patient tolerated the procedure well without any complication. Then the left sacroiliac joint steroid injection done under strict sterile technique local infiltration of the skin and subcu interstitial at the location of the left sacroiliac joint then a 22-gauge Quincke Needle advanced slowly under fluoroscopy time placed in the left sacroiliac joint, needle placement confirmed with AP and oblique and lateral view then after appropriate needle placement confirmed, with the AP and oblique and lateral then after negative aspiration Isovue 200 1 mL injected showed arthropathy of the left sacroiliac joint, and after negative aspiration 0.5% Ropivacaine 2 mL and 40 mg of Depo- Medrol injected in the left sacroiliac joint after negative aspiration patient tolerated the procedure well that any complications and she will follow up in clinic 3 weeks
--- NOTE | 2023-05-20 09:57 | FL ---
Fluoroscopy History: SI JOINT INJECTION BILATERAL SI JOINT INJECTIONS FL 3.5 DAP [id number]
[2023-05-20 09:59] VITALS: BP 117/77; PULSE 57; RESP 18
== END 2023-05-20 09:52 | disposition home or self-care (01) ==
LOC: ORPAIN 08:13
PROVIDERS: ATTEND Specialist
DX: M46.1 Sacroiliitis, not elsewhere classified (principal); M51.36 Other intervertebral disc degeneration, lumbar region; M47.816 Spondylosis without myelopathy or radiculopathy, lumbar region
CPT/HCPCS: 27096; J1040; Q9966; J2795

== ENCOUNTER → 2023-06-10 | Outpatient (CLI) | payer BC ==
[2023-06-10 11:04] VITALS: BP 119/80; PULSE 98; RESP 16; TEMP 97.7
--- NOTE | 2023-06-10 14:16 | P.PAINPG ---
PQRS Measure Charge Sheet Comment: A 43 yr old female with a history of severe and chronic LBP secondary to lumbar DDD and spondylosis with facet arthropathy without myelopathy presents today for evaluation s/p BL SI injection #1. Pt states she experienced 0 % pain relief. Pt states she feels more pain s/p procedure. Pain level is provoked at 9 /10 in intensity, constant, localized in the lumbar spine, predominantly axial, sharp in character w occasional shooting to the BL hips and back of thighs. Pain is provoked by lifting, pushing, pulling, standing/ walking for periods of 15 min or more. Pain is alleviated with heat, ice, meds, topicals, repositioning and rest. Pt states her insurance would not cover PT so she follows physician ericka auguste exercises at home approx 4-5 times weekly x 6 months. Oswestry axial pain score o f 17. Interventional pain procedures completed include LESIs, BL RFA L3-L5 (Sep 2022), BL TPIs L2-S1 x1, BL SI x1 Patient is currently on Ibu, Lidoderm Patient denies any side effects of the medication(s), denies excessive drowsiness or sleepiness, denies suicidal ideation and reports that the current pain medication is helping to control the pain and improve activities of daily living. Patient denies any motor or sensory deficits. Patient denies any fever or night sweats, denies any change in the bowel movements or urination. Physical Examination: -Constitutional: Cooperative. Not in acute distress . - Neurologic: Cranial nerve II to XII intact. No focal neurological deficits. - Psychatric: Alert & oriented x 3. Matching mood & appropriate affect. Judgment and insight intact. - Musculoskeletal: Cervical spine: Muscle bulk/ tone/ strength in the bilateral upper extremities normal Vertebral body tenderness to palpation over Spurling test positive Distraction test positive Facet loading test positive TTP Thoracic spine Muscle bulk / tone/ strength in the bilateral paraspinal muscles normal Vertebral body tender to palpation over Facet loading test positive TTP Lumbar spine: Motor bulk/ tone/ strength lower extremities , thigh and legs : 5/5 Deep tendon reflexes : Normal Knee Jerk. Normal Ankle Jerk . Vertebral body tenderness to palpation over Lumbar Facet Loading Test Taut bands w twitch response over BL L2-S1 Straight Leg Raise: positive at 30 degrees right side/ left side Gaenslen's Test positive Sacral spine : Severe tenderness over the Sacroiliac joint: right side / left side Range of motion: Flexion of the lumbar spine <60 degrees Range of motion: Extension of the lumbar spine <20 degrees Gaenslen's Test positive right side / left side Kanika test: positive right side / left side Thigh Thrust Test positive right side / left side Sacral Thrust Test positive right side / left side Assessment and plan: Chronic LBP secondary to lumbar DDD, spondylosis with facet arthropathy without myelopathy Recommendation of referral to orthopedic surgeon to explore additional treatment options. All questions answered. I have spent less than 30 minutes on patient care today. Dr Barrios was available by phone for the evaluation of this patient. The time was used to review the medical records including relevant urine studies and Prescription history (MAPs), review of the available imaging, evaluation and examination of the patient, coordination of care with the medical staff and if applicable referring physicians, as well as creation of the medical record PQRS Narrative: Hx Alcohol Use (MH) No Home Medications: Ambulatory Orders FLUoxetine HCL 40 mg PO DAILY 04/07/22 Semaglutide [Rybelsus] 6 mg PO DAILY 04/07/22 estradioL [Estrace] 1 mg PO DAILY 04/07/22 Lidocaine 5% Patch [Lidoderm] 1 each TP QAM PRN 09/23/22 buPROPion XL [Wellbutrin XL] 300 mg PO DAILY 11/27/22 diazePAM [Valium] 5 mg PO DAILY PRN 1 Days #2 tab 05/13/23 Controlled Substance Measures - Controlled Substance Measures Is patient prescribed a controlled substance at discharge?: No
== END ==
LOC: PNWHC3 09:57
PROVIDERS: ATTEND Specialist
DX: M51.37 Other intervertebral disc degeneration, lumbosacral region (principal); M47.817 Spondylosis without myelopathy or radiculopathy, lumbosacral region; G89.29 Other chronic pain
CPT/HCPCS: 99211

== ENCOUNTER → 2024-06-26 | Outpatient (CLI) | payer BC ==
--- NOTE | 2024-06-26 14:33 | MM ---
Reason for Exam: Screening (asymptomatic). Last mammogram was performed 1 year(s) and 5 month(s) ago. Patient History: Menarche at age 10. First Full-Term at age 18. Hysterectomy at age 30. Currently using Estrogen. Maternal grandmother had breast cancer at or over age 50. Risk Values: Lisa 5 year model risk: 0.6%. NCI Lifetime model risk: 7.7%. Prior Study Comparison: 01/19/2023 Bilateral MG 3D diag mammo w/cad [facility], [facility]. Tissue Density: The breasts are heterogeneously dense, which may obscure small masses. Findings: Analyzed By CAD. Benign-appearing vascular calcification bilaterally is redemonstrated. Stable small circumscribed 5 mm mass in the right breast posterior upper outer quadrant. There is no suspicious new group of microcalcifications or new suspicious mass in either breast. Overall Assessment: Benign, BI-RAD 2 Management: Screening Mammogram of both breasts in 1 year. . Patient should continue monthly self-breast exams. A clinical breast exam by your physician is recommended on an annual basis. This exam should not preclude additional follow-up of suspicious palpable abnormalities. Note on Lisa scores and lifetime risk: 1. A Lisa score greater than 3% is considered moderate risk. If this is the case, consider specialist referral to assess eligibility for a risk reducing agent. 2. If overall lifetime risk for the development of breast cancer is 20% or higher, the patient may qualify for future screening with alternating mammogram and breast MRI. [facility], , 06/26/2024 2:31 PM. Electronically signed and approved by: Kasi Rojas M.D.
== END | disposition home or self-care (01) ==
LOC: RADMAMWWP 13:53
PROVIDERS: ATTEND Family Medicine
DX: Z12.31 Encounter for screening mammogram for malignant neoplasm of breast (principal); R92.333 Mammographic heterogeneous density, bilateral breasts; R92.1 Mammographic calcification found on diagnostic imaging of breast; Z80.3 Family history of malignant neoplasm of breast
CPT/HCPCS: 77063; 77067

== ENCOUNTER → 2024-10-19 | Outpatient (CLI) | payer BC ==
[2024-10-19 19:58] LABS: Anion Gap 10.50 mmol/L (4.00-12.00); BUN/Creat Ratio 13.30 Ratio (12.00-20.00); Blood Urea Nitrogen 13.3 mg/dL (9.0-27.0); Calcium 10.0 mg/dL (8.7-10.3); Carbon Dioxide 29.5 mmol/L (21.6-31.8); Chloride 105 mmol/L (96-109); Glucose 86 mg/dL (70-110); HCG,Quantitative Serum <3.0 mIU/mL (0.0-6.0); Potassium 4.4 mmol/L (3.5-5.5); Sodium 145 mmol/L (135-145)
[2024-10-19 20:06] LABS: Basophils # (A) 0.05 X 10*3/uL (0.00-0.10); Basophils % (A) 0.6 %; Eosinophils # (A) 0.22 X 10*3/uL (0.04-0.35); Eosinophils % (A) 2.8 %; HCT 38.3 % (37.2-46.3); HGB 12.2 g/dL (12.0-15.0); Immature Grans, Automated 0.30 %; Lymphocytes # (A) 2.04 X 10*3/uL (0.90-5.00); Lymphocytes % (A) 26.0 %; MCH 31.0 pg (27.0-32.0); MCHC 31.9 g/dL (32.0-37.0); MCV 97.2 FL (80.0-97.0); Monocytes # (A) 0.71 X 10*3/uL (0.20-1.00); Monocytes % (A) 9.0 %; NRBC Per 100 WBC 0 X 10*3/uL (0.00-0.01); Neutrophils # (A) 4.81 X 10*3/uL (1.80-7.70); Neutrophils % (A) 61.3 %; Platelet Count 411 X 10*3/uL (140-440); RBC 3.94 X 10*6/uL (4.10-5.20); RDW 13.3 % (11.5-14.5); WBC 7.85 X 10*3/uL (4.50-10.00)
== END | disposition home or self-care (01) ==
LOC: LABWHC1 14:50
PROVIDERS: ATTEND Orthopaedic Surgery
DX: Z01.812 Encounter for preprocedural laboratory examination (principal); M23.91 Unspecified internal derangement of right knee
CPT/HCPCS: 80048; 84702; 85025

== ENCOUNTER 2024-10-27 06:15 | Day surgery (SDC) | payer BC ==
[2024-10-25 11:35] VITALS: BMI 27.8
--- NOTE | 2024-10-26 09:17 | P.HPOR ---
History of Present Illness H&P Date: 10/26/24 Chief Complaint: Right knee pain The patient is a 44-year-old female who presents with progressive right knee pain for the past 5 months. She has medial and lateral pain with prolonged weightbearing. She has instability. She is having night symptoms. She has tried medications in addition to an injection without much relief. She notes the pain and giving way interferes with her normal function and activities. Review of Systems Per HPI Past Medical History Past Medical History: Musculoskeletal Disorder Additional Past Medical History / Comment(s): Crushed disc in lower back with chronic back pain. History of Any Multi-Drug Resistant Organisms: None Reported Past Surgical History: Hysterectomy Additional Past Surgical History / Comment(s): Laparoscopy, PAIN CLINIC PROCEDURES. Past Anesthesia/Blood Transfusion Reactions: No Reported Reaction Additional Past Anesthesia/Blood Transfusion Reaction / Comment(s): Mom hard to wake up. Smoking Status: Former smoker - Past Family History Father Family Medical History: Cancer Additional Family Medical History / Comment(s): Skin cancer. Mother Family Medical History: Fibromyalgia Medications and Allergies Home Medications Medication Instructions Recorded Confirmed Type FLUoxetine HCL 40 mg PO HS 04/07/22 10/25/24 History estradioL [Estrace] 1 mg PO HS 04/07/22 10/25/24 History buPROPion XL [Wellbutrin XL] 300 mg PO QAM 11/27/22 10/25/24 History Allergies Allergy/AdvReac Type Severity Reaction Status Date / Time No Known Allergies Allergy Verified 10/25/24 11:23 Physical Examination - Knee right Appearance: effusion, valgus alignment in stance Effusion grade: grade 1 Tenderness with palpation: medial, lateral Pain: throughout ROM Gait: limping ROM: extension: -10 degrees ROM: flexion: 120 degrees Meniscal tests: lateral meniscal tests: positive, lateral joint line pain: positive Results The patient is a well-developed well-nourished female approximately 5 foot 9, 187 pounds of endomorphic habitus. HEENT exam is nonfocal, neck supple. She is tender about the lateral joint line of the right knee. Collateral stable, Sarah's negative, Almita's elicits lateral pain. Distal neurovascular exam appears intact in the right lower extremity. - Diagnostic results Knee MRI: image reviewed (MRI of the right knee shows evidence of a lateral meniscal tear.) Assessment and Plan Assessment: Right knee internal derangement/symptomatic lateral meniscal tear Plan: I talked to the patient at length regarding her condition along with treatment options. At this point she is quite symptomatic having pain and mechanical symptoms despite conservative measures. After a thorough discussion she opted to proceed with surgery. We will plan to proceed with right knee arthroscopy with possible partial lateral meniscectomy. Risks and benefits were discussed at length in layman's terms. We we will likely perform that as an outpatient procedure.
[~2024-10-27 06:15] MED LIST changes: -LACTATED RINGERS 1,000 ML IV SCH; +LIDOCAINE 1% (10MG/ML) FOR IV START INTRADERMA PRN
[2024-10-27] MEDS: IV FLUID CONTINUATION 1,000 ML IV ONE (06:44)
[2024-10-27] MEDS: LACTATED RINGERS 1,000 ML IV SCH (07:00)
[2024-10-27] MEDS: ONDANSETRON 4 MG/2 ML VIAL IVP ONE (07:00)
[2024-10-27] MEDS: DEXAMETHASONE SOD PHOSPHATE 4 MG/ML 1 ML VIAL IV ONE (07:01)
[2024-10-27] MEDS ORDERED: PROPOFOL 10 MG/ML 20 ML VIAL IV ONE (07:23)
[2024-10-27] MEDS ORDERED: LIDOCAINE 1% INJ 10MG/ML (20 ML MDV) ONE (07:23)
[2024-10-27] MEDS ORDERED: fentaNYL (PF) 50 MCG/ML 2 ML AMP ONE (07:23)
[2024-10-27] MEDS ORDERED: KETOROLAC 15 MG/ML 1 ML VIAL ONE (07:23)
[2024-10-27] MEDS ORDERED: GLYCOPYRROLATE 0.2 MG/ML 2 ML VIAL ONE (07:23)
[2024-10-27] MEDS ORDERED: MIDAZOLAM 2 MG/2 ML VIAL ONE (07:23)
[2024-10-27] MEDS ORDERED: HYDROmorphone (PF) 1 MG/ML ONE (07:23)
--- NOTE | 2024-10-27 08:18 | P.OP ---
Date of Procedure: 10/27/24 Preoperative Diagnosis: Right knee internal derangement Postoperative Diagnosis: Right knee anterior and middle one third lateral meniscal tear Procedure(s) Performed: Right knee arthroscopic partial lateral meniscectomy Anesthesia: GETA Surgeon: Willard Palafox Estimated Blood Loss (ml): 10 Pathology: none sent Disposition: PACU Indications for Procedure: The patient is a 44-year-old presents with progressive right knee pain and mechanical symptoms despite conservative measures. A discussion of the risks and benefits of operative intervention versus continued conservative measures was made with the patient. She opted to proceed with surgery. Operative risks include infection, neurovascular injury, development of blood clots, possible incomplete resolution of symptoms, possible worsening of symptoms and need for subsequent procedures was discussed. Informed consent was obtained. Operative Findings: As below Description of Procedure: The patient was brought to the operating room, and after induction of general anesthesia examined the right knee. Collaterals were stable, Sarah was negative, and posterior drawer was negative. The right lower extremity was prepped and draped in a normal fashion. A superior lateral portal was made through a 3 mm skin incision superior and lateral to the patella. This was used for outflow. A lateral portal was made through a 5 mm vertical skin incision lateral to the patella tendon above the joint line. Diagnostic arthroscopy was performed. On inspection of the medial compartment, no significant meniscal or cartilage pathology was noted. On inspection of the notch, the anterior cruciate ligament appeared to be intact. On inspection of the lateral compartment, a macerated tear involving the middle to anterior one third of the lateral meniscus was noted in the whitewhite junction. This attributed back to a stable base with straight baskets and a motorized shaver. The remaining lateral meniscus was stable and intact. Grade 2/3 chondral changes was noted involving the posterior lateral portion of the lateral tibial plateau. On inspection of the patellofemoral articulation, there was mild chondral fibrillation however no loose chondral fragments. The gutters were clear debris. The knee was then thoroughly irrigated. The portals were closed with Steri-Strips. A sterile dressing was applied in addition to a compression stocking. The patient was awoken from general anesthesia and transferred to recovery room in good condition. Blood loss was estimated at 10 mL. No complications were incurred.
[2024-10-27 08:22] VITALS: TEMP 97.2
[2024-10-27] MEDS: HYDROmorphone 0.5 MG/0.5 ML SYRINGE IVP PRN (08:26)
[2024-10-27 09:25] VITALS: RESP 16
[2024-10-27] MEDS: HYDROcodone/APAP 5-325MG 1 EACH TAB PO STA (09:37)
[2024-10-27 09:49] VITALS: BP 118/72; PULSE 62
== END 2024-10-27 09:40 | disposition home or self-care (01) ==
LOC: OR 06:15
PROVIDERS: ATTEND Orthopaedic Surgery
DX: S83.281A Other tear of lateral meniscus, current injury, right knee, initial encounter (principal); M23.91 Unspecified internal derangement of right knee; F41.9 Anxiety disorder, unspecified; F32.A Depression, unspecified; Z90.710 Acquired absence of both cervix and uterus; Z87.891 Personal history of nicotine dependence; Z79.899 Other long term (current) drug therapy; X58.XXXA Exposure to other specified factors, initial encounter
CPT/HCPCS: 29881; J2250; J1100; J0690; J2405; J2003; J3010; J1171 ×2; J1885; J2704; J1596